=== PATIENT | female | born 2005 | race Caucasian/White ===

== ENCOUNTER 2024-02-12 16:48 | Emergency (ER) | payer SELFPAY ==
[2024-02-12 17:42] LABS: BASOPHILS ABSOLUTE AUTO 0.04 K/uL (0.00-0.20); BASOPHILS PERCENT AUTO 0.7 % (0.0-1.0); EOSINOPHILS ABSOLUTE AUTO 0.52 K/uL (0.00-0.45); EOSINOPHILS PERCENT AUTO 8.5 % (0.0-6.0); HEMATOCRIT 38.4 % (37.0-47.0); HEMOGLOBIN 13.5 g/dL (12.0-16.0); LYMPHOCYTES ABSOLUTE AUTO 1.77 K/uL (1.00-4.80); MEAN CORPUSCULAR HEMOGLOBIN 30.8 pg (28.0-32.0); MEAN CORPUSCULAR HGB CONC 35.2 g/dL (32.0-36.0); MEAN CORPUSCULAR VOLUME 87.7 fL (83.0-99.0); MEAN PLATELET VOLUME 9.1 fL (9.4-12.3); MONOCYTES ABSOLUTE AUTO 0.56 K/uL (0.00-0.80); MONOCYTES PERCENT AUTO 9.2 % (0.0-8.0); NEUTROPHILS ABSOLUTE AUTO 3.22 K/uL (1.80-7.70); NEUTROPHILS PERCENT AUTO 52.6 % (41.0-71.0); PLATELET COUNT,PLT 405 K/uL (150-400); RED BLOOD CELL COUNT 4.38 M/uL (4.10-5.30); WHITE BLOOD CELL COUNT,WBC 6.11 K/uL (3.9-11.3)
[2024-02-12 18:05] LABS: A/G RATIO 1.4 (0.9-1.6); ALBUMIN 4.3 g/dL (3.4-5.0); BILIRUBIN TOTAL 0.4 mg/dL (0.2-1.0); CALCIUM 8.6 mg/dL (8.5-10.1); CARBON DIOXIDE,CO2 27.1 mmol/L (21.0-32.0); CREATININE 0.7 mg/dL (0.6-1.0); EST CRCL DRUG DOSING (CG) 129.32 mL/min; POTASSIUM,K 3.7 mmol/L (3.5-5.1); PROTEIN TOTAL,TP 7.3 g/dL (6.4-8.2)
[2024-02-12 18:27] LABS: APPEARANCE,URINE CLEAR; BILIRUBIN,URINE NEGATIVE (NEGATIVE); COLOR,URINE YELLOW; GLUCOSE,URINE NEGATIVE (NEGATIVE); KETONES,URINE NEGATIVE (NEGATIVE); LEUKOCYTE ESTERASE,URINE NEGATIVE (NEGATIVE); NITRITE,URINE NEGATIVE (NEGATIVE); OCCULT BLOOD,URINE LARGE (NEGATIVE); PH,URINE 6.5 (5.0-8.0); PROTEIN,URINE NEGATIVE (NEGATIVE); UROBILINOGEN,URINE 0.2 EU/dL (<2.0)
[2024-02-12 18:35] LABS: BACTERIA,URINE RARE (NEGATIVE); EPITHELIAL CELLS,URINE RARE (NONE-FEW); WBC,URINE 0-1 (0-5/HPF)
[2024-02-12] MEDS: Ondansetron 4 MG Tab.DIS PO ONE (18:36)
[2024-02-12] MEDS: Ketorolac 30 MG/ML SDV IM STA (18:36)
== END 2024-02-12 19:08 | disposition home or self-care (01) ==
LOC: MW.ED 16:48
DX: N93.8 Other specified abnormal uterine and vaginal bleeding (principal); Z75.8 Other problems related to medical facilities and other health care
CPT/HCPCS: 36415; 76830; 80053; 81001; 84703; 85025; 96372; 99284; A9270; J1885; 99283